=== PATIENT | male | born 1990 | race Hispanic/Latino ===

== ENCOUNTER 2022-09-08 12:11 | Inpatient (IN) | payer MEDICARE, MEDICAID ==
[2022-09-08] MEDS ORDERED: Diltiazem 125 MG/25 ML ONE (12:37)
[2022-09-08] MEDS ORDERED: Digoxin 0.5 MG/2 ML AMP ONE (12:52)
[2022-09-08] MEDS ORDERED: Cefepime 2 GM VIAL ONE (13:25)
[2022-09-08 13:47] LABS: ALT (SGPT) Less than 6 U/L (8-55); AST (SGOT) 18 U/L (5-34); Albumin 3.1 g/dL (3.5-5.0); Alkaline Phosphatase 53 U/L (40-110); Anion Gap 18 mmol/L (10-20); BUN (Urea Nitrogen) 37 mg/dL (8.9-20.6); Bilirubin, Total 0.5 mg/dL (0.2-1.2); CK (CPK) 12 U/L (30-200); Calc. Creatinine Clearance 0 mL/min (70-130); Calcium 8.7 mg/dL (7.8-10.44); Carbon Dioxide 24 mmol/L (22-29); Chloride 101 mmol/L (98-107); Estimated GFR 15; Globulin 3.3 g/dL (2.4-3.5); Glucose 116 mg/dL (70-105); Potassium 4.5 mmol/L (3.5-5.1); Protein, Total 6.4 g/dL (6.0-8.3); Sodium 138 mmol/L (136-145)
[2022-09-08] MEDS ORDERED: Albumin 25% 100 ML ONE (13:51)
[2022-09-08 13:55] LABS: #Eosinphils 0.2 10x3/uL (0.0-0.5); #Monocytes 0.7 10x3/uL (0.0-1.1); #Neutrophils 6.5 10x3/uL (1.5-8.4); %Basophils 0.4 % (0.0-2.0); %Eosinophils 2.9 % (0.0-6.0); %Lymphocytes 7.6 % (18.0-47.0); %Monocytes 8.5 % (0.0-10.0); %Neutrophils 80.2 % (40.0-75.0); Hemoglobin 8.6 g/dL (13.5-17.5); Mean Corpuscular HGB CONC 30.6 g/dL (32.0-36.0); Mean Corpuscular Hemoglobin 30.3 pg (27.0-33.0); Mean Corpuscular Volume 98.9 fl (81.2-95.1); Mean Platelet Volume 10.3 fl (7.4-10.4); Platelet Count 237 10x3/uL (150-450); RBC Distribution Width 20.6 % (11.5-14.5); Red Blood Cell (RBC) Count 2.84 10x6/uL (4.32-5.72)
[2022-09-08 14:09] LABS: CKMB 0.7 ng/mL (0-6.6)
[2022-09-08 14:19] LABS: Platelet Morphology Comment Appears Adequate
[2022-09-08 16:10] VITALS: BMI 68.2
[2022-09-08 17:11] LABS: Lactic Acid 3.4 mmol/L (0.5-2.2)
[2022-09-08 17:21] LABS: Troponin I 0.043 ng/mL (< 0.028)
[2022-09-08 17:23] LABS: SARS-CoV-2 NAA Rapid Test Not Detected (NotDetected)
[2022-09-08] MEDS: Albumin 25% 25 GM/100 ML BOT IVPB SCH (18:18)
[2022-09-08] MEDS: Midodrine HCl 5 MG TAB PO SCH (20:24)
[2022-09-08] MEDS: HYDROcodone/Acetaminophen 5/325 mg Tablet PO PRN (20:25)
[2022-09-08] MEDS: Senokot S 8.6-50 MG TAB PO SCH (20:25)
[2022-09-08] MEDS: Folic Acid/Vit B Comp W-C PO SCH (20:26)
[2022-09-08 22:26] LABS: Troponin I 0.044 ng/mL (< 0.028)
[2022-09-08] MEDS ORDERED: Digoxin 0.5 MG/2 ML AMP SLOW IVP SCH (23:00)
[2022-09-09] MEDS: Albumin 25% 25 GM/100 ML BOT IVPB SCH ×3 (00:51→10:52)
[2022-09-09] MEDS ORDERED: Digoxin 0.5 MG/2 ML AMP SLOW IVP SCH ×3 (01:00→10:45)
[2022-09-09] MEDS: NOREPINEPHRINE 8 MG/250 ML-D5W 250 ML IVPB SCH (01:30)
[2022-09-09 05:05] LABS: #Eosinphils 0.3 10x3/uL (0.0-0.5); #Monocytes 0.8 10x3/uL (0.0-1.1); #Neutrophils 7.1 10x3/uL (1.5-8.4); %Basophils 0.2 % (0.0-2.0); %Eosinophils 2.9 % (0.0-6.0); %Lymphocytes 8.8 % (18.0-47.0); %Monocytes 8.5 % (0.0-10.0); %Neutrophils 79.3 % (40.0-75.0); Hemoglobin 7.3 g/dL (13.5-17.5); Mean Corpuscular HGB CONC 30.4 g/dL (32.0-36.0); Mean Corpuscular Hemoglobin 29.8 pg (27.0-33.0); Mean Platelet Volume 10.2 fl (7.4-10.4); Platelet Count 254 10x3/uL (150-450); RBC Distribution Width 20.4 % (11.5-14.5); Red Blood Cell (RBC) Count 2.45 10x6/uL (4.32-5.72)
[2022-09-09 05:24] LABS: Anion Gap 15 mmol/L (10-20); BUN (Urea Nitrogen) 38 mg/dL (8.9-20.6); Calc. Creatinine Clearance 61 mL/min (70-130); Calcium 8.8 mg/dL (7.8-10.44); Carbon Dioxide 26 mmol/L (22-29); Chloride 100 mmol/L (98-107); Estimated GFR 15; Glucose 107 mg/dL (70-105); Potassium 4.3 mmol/L (3.5-5.1); Sodium 137 mmol/L (136-145)
[2022-09-09] MEDS: Levothyroxine Sodium 125 MCG TAB PO SCH (07:46)
[2022-09-09] MEDS: Sevelamer Carbonate 800 MG TAB PO SCH ×3 (08:08→18:02)
[2022-09-09] MEDS: Calcitriol 0.25 MCG CAP PO SCH (08:09)
[2022-09-09] MEDS: Folic Acid 1 MG TAB PO SCH (08:09)
[2022-09-09] MEDS: Senokot S 8.6-50 MG TAB PO SCH ×2 (08:09→20:44)
[2022-09-09] MEDS: Midodrine HCl 5 MG TAB PO SCH ×3 (08:09→20:44)
[2022-09-09] MEDS ORDERED: CEFPODOXIME PROXETIL 200 MG PO SCH (09:00)
[2022-09-09 11:20] LABS: Magnesium 1.8 mg/dL (1.6-2.6)
[2022-09-09] MEDS ORDERED: Heparin 10,000 UNITS/ 10 ML VIAL SLOW IVP PRN (16:07)
[2022-09-09] MEDS: HYDROcodone/Acetaminophen 5/325 mg Tablet PO PRN (19:47)
[2022-09-09] MEDS: Folic Acid/Vit B Comp W-C PO SCH (20:44)
[2022-09-10] MEDS: Levothyroxine Sodium 125 MCG TAB PO SCH (06:21)
[2022-09-10] MEDS: Calcitriol 0.25 MCG CAP PO SCH (08:29)
[2022-09-10] MEDS: Sevelamer Carbonate 800 MG TAB PO SCH ×3 (08:29→17:36)
[2022-09-10] MEDS: Senokot S 8.6-50 MG TAB PO SCH ×2 (08:30→22:49)
[2022-09-10] MEDS: Midodrine HCl 5 MG TAB PO SCH ×3 (08:30→22:49)
[2022-09-10] MEDS: Folic Acid 1 MG TAB PO SCH (08:30)
[2022-09-10] MEDS ORDERED: Digoxin 0.5 MG/2 ML AMP SLOW IVP SCH (12:00)
[2022-09-10] MEDS: Albumin 25% 25 GM/100 ML BOT IVPB SCH (18:50)
[2022-09-10] MEDS: Heparin 10,000 UNITS/ 10 ML VIAL SLOW IVP PRN (19:00)
[2022-09-10] MEDS ORDERED: Heparin 10,000 UNITS/ 10 ML VIAL SLOW IVP PRN (19:05)
[2022-09-10] MEDS: Folic Acid/Vit B Comp W-C PO SCH (22:49)
[2022-09-10] MEDS: HYDROcodone/Acetaminophen 5/325 mg Tablet PO PRN (23:07)
[2022-09-11 03:41] LABS: #Basophils 0.1 10x3/uL (0.0-0.2); #Eosinphils 0.4 10x3/uL (0.0-0.5); #Monocytes 1.5 10x3/uL (0.0-1.1); #Neutrophils 9.8 10x3/uL (1.5-8.4); %Basophils 0.5 % (0.0-2.0); %Eosinophils 2.9 % (0.0-6.0); %Lymphocytes 8.3 % (18.0-47.0); %Monocytes 11.4 % (0.0-10.0); Hemoglobin 6.9 g/dL (13.5-17.5); Mean Corpuscular HGB CONC 31.2 g/dL (32.0-36.0); Mean Corpuscular Hemoglobin 30.9 pg (27.0-33.0); Mean Corpuscular Volume 99.1 fl (81.2-95.1); Platelet Count 235 10x3/uL (150-450); RBC Distribution Width 20.5 % (11.5-14.5); Red Blood Cell (RBC) Count 2.23 10x6/uL (4.32-5.72); White Blood Cell (WBC) Count 12.8 10x3/uL (3.5-10.5)
[2022-09-11 04:00] LABS: Anion Gap 18 mmol/L (10-20); BUN (Urea Nitrogen) 35 mg/dL (8.9-20.6); Calc. Creatinine Clearance 61 mL/min (70-130); Calcium 9.3 mg/dL (7.8-10.44); Carbon Dioxide 23 mmol/L (22-29); Chloride 99 mmol/L (98-107); Estimated GFR 15; Glucose 105 mg/dL (70-105); Potassium 4.9 mmol/L (3.5-5.1); Sodium 135 mmol/L (136-145)
[2022-09-11] MEDS: Levothyroxine Sodium 125 MCG TAB PO SCH (05:47)
[2022-09-11] MEDS: Sevelamer Carbonate 800 MG TAB PO SCH ×3 (07:53→17:12)
[2022-09-11] MEDS: Folic Acid 1 MG TAB PO SCH (08:02)
[2022-09-11] MEDS: Midodrine HCl 5 MG TAB PO SCH ×3 (08:02→20:06)
[2022-09-11] MEDS: Calcitriol 0.25 MCG CAP PO SCH (08:02)
[2022-09-11] MEDS: Digoxin 0.125 MG TAB PO SCH (08:03)
[2022-09-11] MEDS: Senokot S 8.6-50 MG TAB PO SCH ×2 (08:09→20:06)
[2022-09-11] MEDS ORDERED: Dronedarone HCl 400 MG TAB PO SCH (17:30)
[2022-09-11] MEDS: Albumin 25% 25 GM/100 ML BOT IVPB SCH (17:45)
[2022-09-11] MEDS: HYDROcodone/Acetaminophen 5/325 mg Tablet PO PRN (20:05)
[2022-09-11] MEDS: Folic Acid/Vit B Comp W-C PO SCH (20:06)
[2022-09-12 05:47] LABS: #Eosinphils 0.4 10x3/uL (0.0-0.5); #Monocytes 0.6 10x3/uL (0.0-1.1); #Neutrophils 7.5 10x3/uL (1.5-8.4); %Basophils 0.4 % (0.0-2.0); %Eosinophils 3.9 % (0.0-6.0); %Lymphocytes 9.1 % (18.0-47.0); %Neutrophils 80.2 % (40.0-75.0); Hemoglobin 6.9 g/dL (13.5-17.5); Mean Corpuscular HGB CONC 30.5 g/dL (32.0-36.0); Mean Corpuscular Hemoglobin 30.1 pg (27.0-33.0); Mean Corpuscular Volume 98.7 fl (81.2-95.1); Platelet Count 263 10x3/uL (150-450); RBC Distribution Width 20.4 % (11.5-14.5); Red Blood Cell (RBC) Count 2.29 10x6/uL (4.32-5.72); White Blood Cell (WBC) Count 9.3 10x3/uL (3.5-10.5)
[2022-09-12 05:57] LABS: Anion Gap 15 mmol/L (10-20); BUN (Urea Nitrogen) 39 mg/dL (8.9-20.6); Calc. Creatinine Clearance 53 mL/min (70-130); Calcium 9.2 mg/dL (7.8-10.44); Carbon Dioxide 25 mmol/L (22-29); Chloride 100 mmol/L (98-107); Estimated GFR 13; Glucose 108 mg/dL (70-105); Sodium 135 mmol/L (136-145)
[2022-09-12] MEDS: Levothyroxine Sodium 125 MCG TAB PO SCH (06:24)
[2022-09-12] MEDS: Sevelamer Carbonate 800 MG TAB PO SCH ×3 (07:57→16:47)
[2022-09-12] MEDS: Folic Acid 1 MG TAB PO SCH (07:58)
[2022-09-12] MEDS: Digoxin 0.125 MG TAB PO SCH (07:58)
[2022-09-12] MEDS: Dronedarone HCl 400 MG TAB PO SCH ×2 (07:59→16:34)
[2022-09-12] MEDS: Calcitriol 0.25 MCG CAP PO SCH (07:59)
[2022-09-12] MEDS: Midodrine HCl 5 MG TAB PO SCH ×3 (08:00→20:22)
[2022-09-12] MEDS: Senokot S 8.6-50 MG TAB PO SCH ×2 (08:01→20:22)
[2022-09-12] MEDS ORDERED: EPOETIN ALFA-EPBX (ESRD) 10,000 UNIT/ML VIAL SC SCH (09:00)
[2022-09-12] MEDS ORDERED: Albumin 25% 25 GM/100 ML BOT IVPB PRN (09:13)
[2022-09-12] MEDS ORDERED: Heparin 10,000 UNITS/ 10 ML VIAL FS PRN (09:14)
[2022-09-12] MEDS: Heparin 10,000 UNITS/ 10 ML VIAL SLOW IVP PRN (10:02)
[2022-09-12] MEDS: NOREPINEPHRINE 8 MG/250 ML-D5W 250 ML IVPB SCH (10:20)
[2022-09-12] MEDS: HYDROcodone/Acetaminophen 5/325 mg Tablet PO PRN (13:58)
[2022-09-12] MEDS: Acetaminophen 325 MG TAB PO PRN (15:31)
[2022-09-12] MEDS: Folic Acid/Vit B Comp W-C PO SCH (20:22)
[2022-09-13] MEDS: NOREPINEPHRINE 8 MG/250 ML-D5W 250 ML IVPB SCH ×4 (03:06→22:33)
[2022-09-13 04:45] LABS: #Eosinphils 0.3 10x3/uL (0.0-0.5); #Monocytes 0.6 10x3/uL (0.0-1.1); #Neutrophils 9.2 10x3/uL (1.5-8.4); %Basophils 0.4 % (0.0-2.0); %Eosinophils 2.4 % (0.0-6.0); %Lymphocytes 7.8 % (18.0-47.0); %Monocytes 5.6 % (0.0-10.0); %Neutrophils 83.3 % (40.0-75.0); Anion Gap 15 mmol/L (10-20); BUN (Urea Nitrogen) 36 mg/dL (8.9-20.6); Calc. Creatinine Clearance 57 mL/min (70-130); Calcium 9.3 mg/dL (7.8-10.44); Carbon Dioxide 26 mmol/L (22-29); Chloride 97 mmol/L (98-107); Estimated GFR 14; Glucose 123 mg/dL (70-105); Hemoglobin 7.9 g/dL (13.5-17.5); Mean Corpuscular HGB CONC 31.3 g/dL (32.0-36.0); Mean Corpuscular Hemoglobin 30.4 pg (27.0-33.0); Mean Corpuscular Volume 96.9 fl (81.2-95.1); Mean Platelet Volume 9.5 fl (7.4-10.4); Platelet Count 288 10x3/uL (150-450); Potassium 4.7 mmol/L (3.5-5.1); RBC Distribution Width 19.9 % (11.5-14.5); Sodium 133 mmol/L (136-145); White Blood Cell (WBC) Count 11.1 10x3/uL (3.5-10.5)
[2022-09-13] MEDS: Acetaminophen 325 MG TAB PO PRN (05:37)
[2022-09-13] MEDS: Levothyroxine Sodium 125 MCG TAB PO SCH (05:37)
[2022-09-13] MEDS: Folic Acid 1 MG TAB PO SCH (08:20)
[2022-09-13] MEDS: Digoxin 0.125 MG TAB PO SCH (08:20)
[2022-09-13] MEDS: Midodrine HCl 5 MG TAB PO SCH ×3 (08:21→20:08)
[2022-09-13] MEDS: Sevelamer Carbonate 800 MG TAB PO SCH ×3 (08:21→17:31)
[2022-09-13] MEDS: Calcitriol 0.25 MCG CAP PO SCH (08:22)
[2022-09-13] MEDS: Dronedarone HCl 400 MG TAB PO SCH ×2 (08:23→20:15)
[2022-09-13] MEDS: Senokot S 8.6-50 MG TAB PO SCH ×2 (08:28→20:09)
[2022-09-13] MEDS: HYDROcodone/Acetaminophen 5/325 mg Tablet PO PRN ×2 (12:41→21:50)
[2022-09-13] MEDS ORDERED: Loperamide HCl 2 MG CAP PO SCH (15:00)
[2022-09-13] MEDS: Folic Acid/Vit B Comp W-C PO SCH (20:08)
[2022-09-13] MEDS: Loperamide HCl 2 MG CAP PO PRN (20:08)
[2022-09-13] MEDS: Flecainide 50 MG TAB PO SCH (20:15)
[2022-09-14] MEDS: HYDROcodone/Acetaminophen 5/325 mg Tablet PO PRN ×3 (02:24→22:06)
[2022-09-14 03:47] LABS: #Basophils 0.1 10x3/uL (0.0-0.2); #Eosinphils 0.4 10x3/uL (0.0-0.5); #Monocytes 0.8 10x3/uL (0.0-1.1); #Neutrophils 9.4 10x3/uL (1.5-8.4); %Basophils 0.5 % (0.0-2.0); %Eosinophils 3.3 % (0.0-6.0); %Lymphocytes 6.9 % (18.0-47.0); %Monocytes 6.6 % (0.0-10.0); %Neutrophils 82.3 % (40.0-75.0); Hemoglobin 8.1 g/dL (13.5-17.5); Mean Corpuscular HGB CONC 31.3 g/dL (32.0-36.0); Mean Corpuscular Hemoglobin 30.5 pg (27.0-33.0); Mean Corpuscular Volume 97.4 fl (81.2-95.1); Mean Platelet Volume 9.3 fl (7.4-10.4); Platelet Count 265 10x3/uL (150-450); RBC Distribution Width 19.8 % (11.5-14.5); Red Blood Cell (RBC) Count 2.66 10x6/uL (4.32-5.72); White Blood Cell (WBC) Count 11.4 10x3/uL (3.5-10.5)
[2022-09-14 03:59] LABS: Anion Gap 16 mmol/L (10-20); BUN (Urea Nitrogen) 42 mg/dL (8.9-20.6); Calc. Creatinine Clearance 50 mL/min (70-130); Calcium 9.3 mg/dL (7.8-10.44); Carbon Dioxide 26 mmol/L (22-29); Chloride 98 mmol/L (98-107); Estimated GFR 12; Glucose 123 mg/dL (70-105); Potassium 5.3 mmol/L (3.5-5.1); Sodium 135 mmol/L (136-145)
[2022-09-14] MEDS: Levothyroxine Sodium 125 MCG TAB PO SCH (06:07)
[2022-09-14] MEDS: NOREPINEPHRINE 8 MG/250 ML-D5W 250 ML IVPB SCH ×3 (06:07→20:19)
[2022-09-14] MEDS: Midodrine HCl 5 MG TAB PO SCH ×3 (08:07→20:19)
[2022-09-14] MEDS: Digoxin 0.125 MG TAB PO SCH (08:08)
[2022-09-14] MEDS: Folic Acid 1 MG TAB PO SCH (08:08)
[2022-09-14] MEDS: Calcitriol 0.25 MCG CAP PO SCH (08:08)
[2022-09-14] MEDS: Flecainide 50 MG TAB PO SCH ×2 (08:08→20:19)
[2022-09-14] MEDS: Sevelamer Carbonate 800 MG TAB PO SCH ×3 (08:08→20:20)
[2022-09-14] MEDS: Senokot S 8.6-50 MG TAB PO SCH ×2 (09:36→20:20)
[2022-09-14] MEDS: Folic Acid/Vit B Comp W-C PO SCH (20:19)
[2022-09-14] MEDS: Heparin 10,000 UNITS/ 10 ML VIAL SLOW IVP PRN (20:33)
[2022-09-15 03:55] LABS: #Eosinphils 0.3 10x3/uL (0.0-0.5); #Monocytes 0.6 10x3/uL (0.0-1.1); #Neutrophils 8.7 10x3/uL (1.5-8.4); %Basophils 0.4 % (0.0-2.0); %Eosinophils 3.2 % (0.0-6.0); %Lymphocytes 6.2 % (18.0-47.0); %Monocytes 6.1 % (0.0-10.0); %Neutrophils 83.5 % (40.0-75.0); Hemoglobin 7.3 g/dL (13.5-17.5); Mean Corpuscular HGB CONC 30.4 g/dL (32.0-36.0); Mean Corpuscular Hemoglobin 29.9 pg (27.0-33.0); Mean Corpuscular Volume 98.4 fl (81.2-95.1); Mean Platelet Volume 9.3 fl (7.4-10.4); Platelet Count 231 10x3/uL (150-450); RBC Distribution Width 19.7 % (11.5-14.5); Red Blood Cell (RBC) Count 2.44 10x6/uL (4.32-5.72); White Blood Cell (WBC) Count 10.4 10x3/uL (3.5-10.5)
[2022-09-15 04:04] LABS: ALT (SGPT) Less than 6 U/L (8-55); AST (SGOT) 8 U/L (5-34); Alkaline Phosphatase 54 U/L (40-110); Anion Gap 15 mmol/L (10-20); BUN (Urea Nitrogen) 38 mg/dL (8.9-20.6); Bilirubin, Total 0.5 mg/dL (0.2-1.2); Calc. Creatinine Clearance 54 mL/min (70-130); Calcium 9.1 mg/dL (7.8-10.44); Carbon Dioxide 27 mmol/L (22-29); Chloride 99 mmol/L (98-107); Estimated GFR 13; Globulin 3.3 g/dL (2.4-3.5); Glucose 120 mg/dL (70-105); Potassium 5.3 mmol/L (3.5-5.1); Protein, Total 6.3 g/dL (6.0-8.3); Sodium 136 mmol/L (136-145)
[2022-09-15] MEDS: HYDROcodone/Acetaminophen 5/325 mg Tablet PO PRN ×2 (04:42→13:59)
[2022-09-15] MEDS: NOREPINEPHRINE 8 MG/250 ML-D5W 250 ML IVPB SCH (05:23)
[2022-09-15] MEDS: Loperamide HCl 2 MG CAP PO PRN (06:14)
[2022-09-15] MEDS: Levothyroxine Sodium 125 MCG TAB PO SCH (06:15)
[2022-09-15] MEDS: Flecainide 50 MG TAB PO SCH ×2 (08:00→20:31)
[2022-09-15] MEDS: Folic Acid 1 MG TAB PO SCH (08:01)
[2022-09-15] MEDS: Digoxin 0.125 MG TAB PO SCH (08:01)
[2022-09-15] MEDS: Midodrine HCl 5 MG TAB PO SCH ×3 (08:01→20:28)
[2022-09-15] MEDS: Senokot S 8.6-50 MG TAB PO SCH ×2 (08:02→20:25)
[2022-09-15] MEDS: Sevelamer Carbonate 800 MG TAB PO SCH ×3 (08:07→17:50)
[2022-09-15] MEDS: Calcitriol 0.25 MCG CAP PO SCH (08:09)
[2022-09-15] MEDS: Folic Acid/Vit B Comp W-C PO SCH (20:28)
[2022-09-15] MEDS ORDERED: Calcium Carbonate 500 MG ChewTAB PO PRN (21:26)
[2022-09-15] MEDS ORDERED: Famotidine/PF 20 mg/2ml Vial SLOW IVP SCH (21:30)
[2022-09-16] MEDS: HYDROcodone/Acetaminophen 5/325 mg Tablet PO PRN ×2 (03:50→08:40)
[2022-09-16 04:00] LABS: Hemoglobin 6.8 g/dL (13.5-17.5); Platelet Count 213 10x3/uL (150-450)
[2022-09-16] MEDS: Levothyroxine Sodium 125 MCG TAB PO SCH (06:32)
[2022-09-16] MEDS: Sevelamer Carbonate 800 MG TAB PO SCH ×3 (08:30→17:00)
[2022-09-16] MEDS: Folic Acid 1 MG TAB PO SCH (08:41)
[2022-09-16] MEDS: Digoxin 0.125 MG TAB PO SCH (08:41)
[2022-09-16] MEDS: Senokot S 8.6-50 MG TAB PO SCH ×2 (08:42→22:45)
[2022-09-16] MEDS: Flecainide 50 MG TAB PO SCH ×2 (08:42→22:45)
[2022-09-16] MEDS: Calcitriol 0.25 MCG CAP PO SCH (08:42)
[2022-09-16] MEDS: Midodrine HCl 5 MG TAB PO SCH ×3 (08:42→22:45)
[2022-09-16] MEDS: Heparin 10,000 UNITS/ 10 ML VIAL SLOW IVP PRN (09:20)
[2022-09-16] MEDS: HYDROcodone/Acetaminophen 10/325 mg Tablet PO PRN ×2 (13:17→22:48)
[2022-09-16] MEDS ORDERED: Sevelamer Carbonate 800 MG TAB PO SCH (20:00)
[2022-09-16] MEDS: Folic Acid/Vit B Comp W-C PO SCH (23:18)
[2022-09-17] MEDS: Levothyroxine Sodium 125 MCG TAB PO SCH (06:03)
[2022-09-17 06:40] LABS: Hemoglobin 7.1 g/dL (13.5-17.5); Platelet Count 210 10x3/uL (150-450)
[2022-09-17] MEDS: Sevelamer Carbonate 800 MG TAB PO SCH ×4 (09:08→17:27)
[2022-09-17] MEDS: Flecainide 50 MG TAB PO SCH ×2 (09:09→21:55)
[2022-09-17] MEDS: Digoxin 0.125 MG TAB PO SCH (09:09)
[2022-09-17] MEDS: Calcitriol 0.25 MCG CAP PO SCH (09:13)
[2022-09-17] MEDS: Senokot S 8.6-50 MG TAB PO SCH ×2 (09:14→21:55)
[2022-09-17] MEDS: Folic Acid 1 MG TAB PO SCH (09:14)
[2022-09-17] MEDS: Midodrine HCl 5 MG TAB PO SCH ×3 (09:18→21:55)
[2022-09-17] MEDS: HYDROcodone/Acetaminophen 10/325 mg Tablet PO PRN (09:22)
[2022-09-17 16:42] LABS: Iron 26 ug/dL (65-175); Iron Binding Capacity, Total 190 mcg/dL (261-462)
[2022-09-17] MEDS: Heparin 10,000 UNITS/ 10 ML VIAL SLOW IVP PRN (17:07)
[2022-09-17] MEDS: Folic Acid/Vit B Comp W-C PO SCH (21:55)
[2022-09-18] MEDS: HYDROcodone/Acetaminophen 10/325 mg Tablet PO PRN (01:30)
[2022-09-18] MEDS ORDERED: Amiodarone 150 MG/3 ML VIAL ONE (05:00)
[2022-09-18] MEDS ORDERED: Magnesium 5 GM/10 ML VIAL ONE (05:00)
[2022-09-18] MEDS ORDERED: Sodium Bicarb 50 MEQ/50 ML Abboject 8.4% SYRINGE ONE (05:00)
[2022-09-18] MEDS ORDERED: Dextrose 50% Abboject 50 ML SYRINGE ONE (05:00)
[2022-09-18] MEDS ORDERED: EPINEPHrine 1 MG/10 ML Abboject SYRINGE ONE (05:00)
[2022-09-18] MEDS ORDERED: Rocuronium Bromide 10 MG/ML (10ML VIAL) ONE (05:00)
[2022-09-18] MEDS ORDERED: Calcium Chloride 1 GM/10 ML Abboject SYRINGE ONE (05:00)
[2022-09-18 06:25] VITALS: BP 91/49; TEMP 98.1
[2022-09-18] MEDS ORDERED: Iron Sucrose Complex 200 MG in Sodium Chloride 0.9% 100 ML IVPB SCH (09:00)
[2022-09-19] MEDS ORDERED: EPOETIN ALFA-EPBX (ESRD) 10,000 UNIT/ML VIAL SC SCH (09:00)
== END 2022-09-18 05:29 | disposition expired | DRG 308 ==
LOC: CSHERS 12:11 → CSHIMCU 15:59 → CSHTELE 09-16 20:39
PROVIDERS: ADMIT Internal Medicine; ATTEND Internal Medicine
PROC: 30233J1 Transfusion of Nonautologous Serum Albumin into Peripheral Vein, Percutaneous Approach (ICD-10-PCS; 2022-09-08)
PROC: 3E033XZ Introduction of Vasopressor into Peripheral Vein, Percutaneous Approach (ICD-10-PCS; 2022-09-09)
PROC: 5A1D70Z Performance of Urinary Filtration, Intermittent, Less than 6 Hours Per Day (ICD-10-PCS; 2022-09-09)
PROC: 30233N1 Transfusion of Nonautologous Red Blood Cells into Peripheral Vein, Percutaneous Approach (ICD-10-PCS; 2022-09-12)
PROC: 02HV33Z Insertion of Infusion Device into Superior Vena Cava, Percutaneous Approach (ICD-10-PCS; 2022-09-13)
PROC: 5A12012 Performance of Cardiac Output, Single, Manual (ICD-10-PCS; principal; 2022-09-18)
DX: I48.21 Permanent atrial fibrillation (principal); J96.00 Acute respiratory failure, unspecified whether with hypoxia or hypercapnia; N18.6 End stage renal disease; I12.0 Hypertensive chronic kidney disease with stage 5 chronic kidney disease or end stage renal disease; Z68.44 Body mass index [BMI] 60.0-69.9, adult; L97.922 Non-pressure chronic ulcer of unspecified part of left lower leg with fat layer exposed; L97.912 Non-pressure chronic ulcer of unspecified part of right lower leg with fat layer exposed; Z51.5 Encounter for palliative care; E87.70 Fluid overload, unspecified; I95.89 Other hypotension; E03.9 Hypothyroidism, unspecified; Z20.822 Contact with and (suspected) exposure to COVID-19; D63.1 Anemia in chronic kidney disease; E66.01 Morbid (severe) obesity due to excess calories; E87.5 Hyperkalemia; Z99.2 Dependence on renal dialysis; Z88.0 Allergy status to penicillin; Z79.899 Other long term (current) drug therapy; Z79.890 Hormone replacement therapy; Z98.890 Other specified postprocedural states; Z87.891 Personal history of nicotine dependence; Z91.14 Patient's other noncompliance with medication regimen; Z83.3 Family history of diabetes mellitus; Z82.49 Family history of ischemic heart disease and other diseases of the circulatory system; Q82.0 Hereditary lymphedema; I49.01 Ventricular fibrillation
CPT/HCPCS: 36415; 36416; 36430; 71045; 76705; 80048; 80053; 82274; 82550; 82553; 82728; 83540; 83550; 83605; 83735; 84484; 85014; 85018; 85025; 85049; 86850; 86900; 86901; 87040; 87811; 90935; 93005; 93010; 93306; 94760; 96374; 96375; 97139; G0257; J0171; J0282; J0692; J1160; J1644; J1650; J3475; J7999; P9016; P9047; Q5105; S0028; U0002